=== PATIENT | female | born 1965 | race Caucasian/White ===

== ENCOUNTER → 2016-03-27 | Outpatient (CLI) | payer OTHER ==
[~2016-03-27] MED LIST: COLA100C2; ECOT325T5; HYDR1TAB97 PO; MELO15TA4 PO; PERC5TAB8; PERCOCET PO; THERGRAN; TYLE500T78 PO
--- NOTE | 2016-03-27 12:51 | REP ---
BILATERAL MAMMOGRAM: Family history of breast cancer in mother. Bilateral mammography performed in the [facility] and CC projections and compared to prior studies, the most recent of which is 11/30/2014. Parenchymal pattern is heterogenous with no definite change compared to prior studies. There may be some increasing tiny calcifications in the upper outer quadrant of the right breast. Other benign appearing scattered calcifications are seen bilaterally. IMPRESSION: ACR 0 incomplete. Possible increasing tiny clustered microcalcifications upper outer quadrant of the right breast. Recommend magnification views to further evaluate. BI-RADS/ACR category 0 mammogram, incomplete. Additional imaging and/or prior images are needed before a final assessment can be assigned. This mammogram was interpreted with the aid of an FDA-approved computer-aided detection system. A. Negative x-ray reports should not delay biopsy if a dominant or clinically suspicious mass is present. B. Four to eight percent of cancers are not identified by x-ray. C. Adenosis and dense breasts may obscure an underlying neoplasm. The patient states that she/he has not had a clinical breast exam in over a year. The patient letter being requested is M0.
== END ==
LOC: M WHC 10:08
PROVIDERS: ATTEND Obstetrics & Gynecology
DX: Z12.31 Encounter for screening mammogram for malignant neoplasm of breast (principal)

== ENCOUNTER → 2016-07-16 | Outpatient (CLI) | payer OTHER ==
[~2016-07-16] MED LIST changes: +HYDR-3713 PO; -HYDR1TAB97 PO
--- NOTE | 2016-07-16 09:41 | REP ---
DIAGNOSTIC MAMMOGRAM RIGHT BREAST: Multiple magnification views of the right breast are performed and correlated with the recent mammogram of 03/27/2016. Comparison also made with other prior more remote exams. There are increasing tiny calcifications focally in the upper outer quadrant of the right breast. These cannot definitely be characterized as benign. Sterotactic biopsy is recommended. IMPRESSION: ACR 4 suspicious. Clustered pleomorphic microcalcifications upper outer quadrant right breast. Recommend sterotactic biopsy. The patient letter being requested is M4. Signed by Douglas Garduno MD 07/17/2016 04:39 P
== END ==
LOC: M RAD 08:41
PROVIDERS: ATTEND Obstetrics & Gynecology
DX: R92.0 Mammographic microcalcification found on diagnostic imaging of breast (principal)

== ENCOUNTER 2016-08-04 11:04 | Emergency (ER) | payer OTHER ==
[~2016-08-04] VITALS: Ht 170.2 cm; Wt 70.3 kg
[2016-08-04 11:05] VITALS: BP 103/67
[2016-08-04] MEDS ORDERED: HYDR-3713 PO (11:22)
[2016-08-04] MEDS ORDERED: MELO15TA4 PO (11:22)
--- NOTE | 2016-08-04 12:33 | REP ---
LEFT HAND SERIES: Four views. HISTORY: Left hand and finger injury. FINDINGS: Four views of the left hand demonstrate metallic rings on the proximal phalanges of the ring and small fingers. Bones, joints and soft tissues are otherwise unremarkable. No fracture or subluxation is seen. IMPRESSION: No fracture visible. Signed by Roc Coto MD 08/04/2016 03:16 P
== END 2016-08-04 14:00 | disposition home or self-care (01) ==
LOC: M ED 13:28
DX: M65.242 Calcific tendinitis, left hand (principal); K21.9 Gastro-esophageal reflux disease without esophagitis

== ENCOUNTER → 2016-08-23 | Outpatient (CLI) | payer OTHER ==
--- NOTE | 2016-08-23 15:24 | REP ---
MR CERVICAL SPINE WITHOUT CONTRAST: HISTORY: Neck pain. COMPARISON: 06/28/2014 Uncinate process hypertrophy is present on the right at the C3-4 level. This produces minimal narrowing of the right C3 neural foramen. The left C3 neural foramen is patent. A disc bulge with associated osteophyte formation is present at the C4-5 level. There is mild effacement of the thecal sac without spinal cord compression. Uncinate process hypertrophy is present on the right. This produces minimal narrowing of the right C4 neural foramen. The left C4 neural foramen is patent. The patient is status post C5-6 anterior spinal fusion. A fixation plate and bone graft material are present. The spinal canal and neural foramina are patent at this level. A disc bulge is present at the C6-7 level. There is minimal effacement of the thecal sac without spinal cord compression. The C6 neural foramina are patent. There is no other disc bulge or herniation. The remaining neural foramina are patent. The spinal cord is normal in signal intensity. Normal signal intensity is present in the cervical vertebral bodies. There is no subluxation. IMPRESSION: 1. The patient is status post C5-6 anterior spinal fusion. There is anatomic alignment of the cervical spine. 2. There is cervical spondylosis at the C3-4, C4-5, and C6-7 levels without spinal cord compression. There is no significant change compared to the previous study. Signed by Gordy Gilmore MD 08/23/2016 03:30 P
== END ==
LOC: M RAD 10:32
PROVIDERS: ATTEND Physician Assistant
DX: M54.2 Cervicalgia (principal)

== ENCOUNTER → 2016-10-01 | Outpatient (REF) | payer OTHER | LOC: M LAB REF 09:10 | PROVIDERS: ATTEND Physician Assistant | DX: R30.0 Dysuria (principal) ==

== ENCOUNTER → 2018-09-30 | Outpatient (REF) | payer OTHER ==
[~2018-09-30] MED LIST changes: +MELO15TA28 PO; -MELO15TA4 PO
[2018-09-30 18:28] LABS: INR 0.97; PROTHROMBIN TIME 12.6 SECONDS (11.8-14.0)
[2018-09-30 18:29] LABS: PARTIAL THROMBOPLASTIN TIME 28.2 SECONDS (25.0-38.4)
== END ==
LOC: M LABDRAW1 15:13
PROVIDERS: ATTEND Physician Assistant
DX: Z01.812 Encounter for preprocedural laboratory examination (principal)

== ENCOUNTER → 2018-11-19 | Outpatient (CLI) | payer OTHER ==
--- NOTE | 2018-11-19 12:36 | REP ---
MRI of the cervical spine without contrast Indication: Other spondylosis, cervical region. Comparison: MRI of the cervical spine of 08/23/2016. New T1 there are Technique: MRI of the cervical spine was performed utilizing sagittal T1 FLAIR, STIR, and T2 weighted imaging as well as axial T1 and T2-weighted imaging. Following the uneventful intravenous administration of 15 ml ProHance, axial and sagittal T1-weighted imaging was performed. Findings: There is susceptibility artifact related to metallic hardware of the C5-C6 ACDF. There is normal alignment and curvature of the cervical spine. Vertebral body heights and remaining intervertebral disc heights are maintained. There is no bone marrow edema. The visualized spinal cord is normal in signal intensity. At C4-C5, there is disc osteophyte complex formation with effacement of the ventral thecal sac and right uncovertebral joint hypertrophy resulting in right neural foraminal narrowing, progressed since the prior study. There is mild right-sided narrowing of the spinal canal. There is mild disc bulges C6-C7 without significant spinal canal stenosis or neural foraminal compromise, similar to prior. The remaining cervical disc levels are without of spinal canal stenosis or neural foraminal compromise. The paraspinal soft tissues are within normal limits. There is no abnormal enhancement. Impression: Prior C5-C6 ACDF. Cervical spondylosis, most notably at C4-C5. Disc osteophyte complex formation and uncovertebral hypertrophy at C4-C5 with mild spinal canal stenosis and right neural foraminal narrowing. No significant spinal canal stenosis or neural foraminal narrowing at remaining cervical disc levels. No abnormal enhancement. Electronically Signed by Rashid Krueger MD 11/19/2018 12:28 P
== END ==
LOC: M PLARAD 10:36
PROVIDERS: ATTEND Physician Assistant
DX: M47.892 Other spondylosis, cervical region (principal)

== ENCOUNTER → 2019-01-18 | Outpatient (REF) | payer OTHER ==
[2019-01-18 16:24] LABS: BASO % 0.7 % (0.0-1.0); EOS # 0.1 10^3/uL (0.0-0.5); EOS % 2.4 % (0.0-3.0); HEMATOCRIT 44.1 % (36.0-47.0); HEMOGLOBIN 14.1 g/dl (12.0-15.5); LYMPH # 1.3 10^3/uL (1.5-5.0); LYMPH % 31.4 % (24.0-44.0); MEAN CORPUSCULAR HEMOGLOBIN 29.8 pg (27.0-33.0); MEAN CORPUSCULAR VOLUME 93.2 fl (80.0-96.0); MONO # 0.3 10^3/uL (0.0-0.8); MONO % 6.2 % (0.0-5.0); NEUTROPHILS # 2.5 10^3/uL (1.5-8.5); NEUTROPHILS % 59.1 % (36.0-66.0); PLATELET COUNT, AUTOMATED 218 10^3/uL (150-450); RED BLOOD COUNT 4.73 10^6/uL (4.00-5.40); WHITE BLOOD COUNT 4.2 10^3/uL (4.0-10.0)
[2019-01-18 16:54] LABS: ERYTHROCYTE SEDIMENTATION RATE 9 mm/hr (0-30)
== END ==
LOC: M LABDRAW1 13:19
PROVIDERS: ATTEND Physician Assistant Surgical
DX: Z47.89 Encounter for other orthopedic aftercare (principal)

== ENCOUNTER → 2019-02-14 | Outpatient (REF) | payer OTHER | LOC: M LAB REF 18:17 | PROVIDERS: ATTEND Dermatology | DX: D22.71 Melanocytic nevi of right lower limb, including hip (principal) ==

== ENCOUNTER → 2021-02-06 | Outpatient (CLI) | payer BC, OTHER | LOC: M LABSMTC 10:30 | PROVIDERS: ATTEND Pediatrics | DX: Z20.822 Contact with and (suspected) exposure to COVID-19 (principal) | CPT/HCPCS: C9803; U0003 ==

== ENCOUNTER → 2022-07-21 | Outpatient (REF) | payer BC, OTHER | LOC: M PLALAB 11:12 | PROVIDERS: ATTEND Nurse Practitioner Family | DX: Z12.72 Encounter for screening for malignant neoplasm of vagina (principal) | CPT/HCPCS: 87624; G0123 ==

== ENCOUNTER → 2022-10-15 | Outpatient (REF) | payer BC ==
[2022-10-15 17:11] LABS: APPEARANCE, URINE HAZY (CLEAR); BACTERIA, URINE AUTO NEGATIVE (NEGATIVE); BILIRUBIN, URINE AUTO NEGATIVE (NEGATIVE); BLOOD, URINE BLOOD NEGATIVE (NEGATIVE); COLOR, URINE YELLOW (YELLOW); GLUCOSE, URINE (UA) AUTO NEGATIVE (NEGATIVE); KETONE, URINE AUTO NEGATIVE (NEGATIVE); LEUKOCYTE ESTERASE, URINE AUTO NEGATIVE (NEGATIVE); MUCUS, URINE SMALL (NEGATIVE); NITRITE, URINE AUTO NEGATIVE (NEGATIVE); PROTEIN, URINE AUTO NEGATIVE (NEGATIVE); RBC, URINE AUTO 1 /HPF (0-3); SPECIFIC GRAVITY URINE AUTO 1.024 (1.002-1.035); SQUAMOUS EPITHELIAL CELL UR AU 7 /HPF (0-6); UROBILINOGEN, URINE AUTO 0.2 mg/dL (0.0-2.0); WBC, URINE AUTO 6 /HPF (0-3)
== END ==
LOC: M LAB REF 16:06
PROVIDERS: ATTEND Physician Assistant Medical
DX: N39.0 Urinary tract infection, site not specified (principal)

== ENCOUNTER 2023-04-14 15:35 | Emergency (ER) | payer BC ==
[~2023-04-14] VITALS: Ht 170.2 cm; Wt 84.5 kg
[2023-04-14 17:42] LABS: BASO # 0.1 10^3/uL (0.0-0.2); BASO % 0.9 % (0.0-1.0); EOS # 0.1 10^3/uL (0.0-0.5); EOS % 2.3 % (0.0-3.0); HEMATOCRIT 44.3 % (36.0-47.0); HEMOGLOBIN 14.4 g/dl (12.0-15.5); LYMPH # 1.6 10^3/uL (1.5-5.0); LYMPH % 28.5 % (24.0-44.0); MEAN CORPUSCULAR HEMOGLOBIN 30.4 pg (27.0-33.0); MEAN CORPUSCULAR HGB CONC 32.5 g/dl (32.0-36.5); MEAN CORPUSCULAR VOLUME 93.5 fl (80.0-96.0); MONO # 0.4 10^3/uL (0.0-0.8); MONO % 7.2 % (2.0-8.0); NEUTROPHILS # 3.4 10^3/uL (1.5-8.5); NEUTROPHILS % 60.9 % (36.0-66.0); PLATELET COUNT, AUTOMATED 215 10^3/uL (150-450); RED BLOOD COUNT 4.74 10^6/uL (4.00-5.40); WHITE BLOOD COUNT 5.6 10^3/uL (4.0-10.0)
[2023-04-14 18:05] LABS: ETHYL ALCOHOL (ETHANOL) < 0.003 % (0.000-0.010)
[2023-04-14 18:06] LABS: BLOOD UREA NITROGEN 13 MG/DL (9-23); CALCIUM LEVEL 9.2 MG/DL (8.5-10.1); CARBON DIOXIDE LEVEL 30 MMOL/L (20-31); CHLORIDE LEVEL 108 MMOL/L (98-107); CK-MB VALUE MASS < 1.0 NG/ML (<3.6); CREATININE FOR GFR 0.72 MG/DL (0.55-1.30); GLOMERULAR FILTRATION RATE > 60.0 (>51); GLUCOSE, FASTING 88 MG/DL (60-100); POTASSIUM SERUM 4.1 MMOL/L (3.5-5.1); SODIUM LEVEL 141 MMOL/L (136-145)
[2023-04-14 18:09] LABS: THYROID STIMULATING HORMONE 3.676 uIU/ML (0.55-4.78)
[2023-04-14 18:11] LABS: CPK CREATINE PHOSPHOKINASE 88 U/L (34-145); MB/CK RELATIVE INDEX 1.13 (< OR =4)
[2023-04-14 18:37] LABS: HCG, SERUM QUALITATIVE NEGATIVE (NEGATIVE)
[2023-04-14 19:17] VITALS: BP 134/60; TEMP 98.2; O2SAT 96
== END 2023-04-14 19:20 | disposition home or self-care (01) ==
LOC: M ED 15:35
DX: R55 Syncope and collapse (principal); H81.4 Vertigo of central origin; I10 Essential (primary) hypertension; J44.9 Chronic obstructive pulmonary disease, unspecified

== ENCOUNTER → 2024-04-12 | Outpatient (REF) | payer BC, OTHER | LOC: M LAB REF 12:20 | PROVIDERS: ATTEND Physician Assistant | DX: B34.9 Viral infection, unspecified (principal) ==

== ENCOUNTER → 2024-10-25 | Outpatient (REF) | payer BC, OTHER ==
[2024-10-25 12:58] LABS: APPEARANCE, URINE HAZY (CLEAR); BACTERIA, URINE AUTO NEGATIVE (NEGATIVE); BILIRUBIN, URINE AUTO NEGATIVE (NEGATIVE); BLOOD, URINE BLOOD NEGATIVE (NEGATIVE); GLUCOSE, URINE (UA) AUTO NEGATIVE (NEGATIVE); KETONE, URINE AUTO NEGATIVE (NEGATIVE); LEUKOCYTE ESTERASE, URINE AUTO 1+ (NEGATIVE); NITRITE, URINE AUTO NEGATIVE (NEGATIVE); PROTEIN, URINE AUTO NEGATIVE (NEGATIVE); RBC, URINE AUTO 1 /HPF (0-3); SPECIFIC GRAVITY URINE AUTO 1.019 (1.002-1.035); SQUAMOUS EPITHELIAL CELL UR AU 1 /HPF (0-6); UROBILINOGEN, URINE AUTO 0.2 mg/dL (0.0-2.0); WBC, URINE AUTO 33 /HPF (0-3)
== END ==
LOC: M LAB REF 12:00
PROVIDERS: ATTEND Physician Assistant Medical
DX: N39.0 Urinary tract infection, site not specified (principal)

== ENCOUNTER 2024-10-30 10:34 | Emergency (ER) | payer BC, OTHER ==
[~2024-10-30] VITALS: Ht 170.2 cm; Wt 68.2 kg
[2024-10-30] MEDS: NS (Normal Saline) 0.9% 1,000 ML IV ONE (11:14)
[2024-10-30] MEDS: diphenhydrAMINE 50 MG/ML VIAL IV STA (11:14)
[2024-10-30 11:23] LABS: BASO # 0.1 10^3/uL (0.0-0.2); BASO % 0.9 % (0.0-1.0); EOS # 0.0 10^3/uL (0.0-0.5); EOS % 0.2 % (0.0-3.0); LYMPH # 2.8 10^3/uL (1.5-5.0); LYMPH % 30.6 % (24.0-44.0); MONO # 0.5 10^3/uL (0.0-0.8); MONO % 5.8 % (2.0-8.0); NEUTROPHILS # 5.6 10^3/uL (1.5-8.5); NEUTROPHILS % 62.3 % (36.0-66.0); PLATELET COUNT, AUTOMATED 309 10^3/uL (150-450)
[2024-10-30 13:32] LABS: ALT/SGPT 12.0 U/L (7.0-40); AST/SGOT 20.0 U/L (<34); CALCIUM LEVEL 9.1 MG/DL (8.5-10.1); CARBON DIOXIDE LEVEL 27.0 MMOL/L (20-31); CHLORIDE LEVEL 108.0 MMOL/L (98-107); CREATININE FOR GFR 0.82 MG/DL (0.55-1.30); GLOMERULAR FILTRATION RATE 82.9 (>51); POTASSIUM SERUM 4.2 MMOL/L (3.5-5.1); SODIUM LEVEL 145.0 MMOL/L (136-145)
[2024-10-30] MEDS ORDERED: ISOVUE-370 76% 100 ML VIAL As Ordered ONE (13:48)
[2024-10-30 15:02] LABS: KETONE, URINE AUTO RFX 2+ mg/dL (NEGATIVE); MUCUS, URINE RFX LARGE (NEGATIVE); RBC, URINE AUTO RFX 4 /HPF (0-3); SQUAM EPITHELIAL CELL UR AURFX 16 /HPF (0-6)
[2024-10-30 15:03] LABS: LEUKOCYTE ESTERASE UR AUTO RFX 1+ (NEGATIVE); NITRITE, URINE AUTO RFX POSITIVE (NEGATIVE); WBC, URINE AUTO RFX 47 /HPF (0-3)
[2024-10-30] MEDS ORDERED: REGL10TA6 PO (16:03)
[2024-10-30] MEDS ORDERED: CEFD300C PO (16:04)
[2024-10-30 16:30] VITALS: BP 132/84; TEMP 97.6; O2SAT 99
== END 2024-10-30 16:42 | disposition home or self-care (01) ==
LOC: M ED 10:34
DX: N39.0 Urinary tract infection, site not specified (principal); R11.10 Vomiting, unspecified; K57.30 Diverticulosis of large intestine without perforation or abscess without bleeding; K76.89 Other specified diseases of liver; Z79.899 Other long term (current) drug therapy; Z79.2 Long term (current) use of antibiotics
CPT/HCPCS: 74177; 80048; 80076; 81001; 83690; 85025; 87088; 87186; 93005; 93041; 96361; 96374; 96375; 99285; J1200; J2765; Q9967

== ENCOUNTER → 2025-03-13 | Outpatient (REF) | payer BC ==
[~2025-03-13] MED LIST changes: +CEFD300C PO; +REGL10TA6 PO
[2025-03-13 21:54] LABS: APPEARANCE, URINE HAZY (CLEAR); BACTERIA, URINE AUTO 3+ (NEGATIVE); BILIRUBIN, URINE AUTO NEGATIVE (NEGATIVE); BLOOD, URINE BLOOD NEGATIVE (NEGATIVE); GLUCOSE, URINE (UA) AUTO NEGATIVE (NEGATIVE); KETONE, URINE AUTO NEGATIVE (NEGATIVE); LEUKOCYTE ESTERASE, URINE AUTO 2+ (NEGATIVE); MUCUS, URINE SMALL (NEGATIVE); NITRITE, URINE AUTO NEGATIVE (NEGATIVE); PROTEIN, URINE AUTO NEGATIVE (NEGATIVE); RBC, URINE AUTO 7 /HPF (0-3); SPECIFIC GRAVITY URINE AUTO 1.021 (1.002-1.035); SQUAMOUS EPITHELIAL CELL UR AU 2 /HPF (0-6); UROBILINOGEN, URINE AUTO 0.2 mg/dL (0.0-2.0); WBC, URINE AUTO TNTC /HPF (0-3)
== END ==
LOC: M LAB REF 21:17
PROVIDERS: ATTEND Physician Assistant Medical
DX: N39.0 Urinary tract infection, site not specified (principal)